=== PATIENT | male | born 1985 | race Caucasian/White ===

== ENCOUNTER 2019-10-27 20:12 | Emergency (ER) | payer BC, OTHER ==
[2019-10-27 20:38] VITALS: BP 127/87; PULSE 113; TEMP 99.6; BMI 25.0
--- NOTE | 2019-10-27 21:24 | PDOC ---
*Physical Exam - Vital Signs Last Vital Signs Temp Pulse Resp BP Pulse Ox 99.6 F 113 H 20 127/87 97 10/27/19 20:32 10/27/19 20:32 10/27/19 20:32 10/27/19 20:32 10/27/19 20:32 ED Treatment Course - LABORATORY CBC & Chemistry Diagram: 10/27/19 21:57 10/27/19 21:57 Medical Decision Making - Medical Decision Making 10/27/19 21:24 Patient seen by the advanced practice provider under my direct supervision. Ancillary testing reviewed as necessary. I agree with plan as outlined by the advanced practice provider. Discharge - Discharge Information Problems reviewed: Yes Clinical Impression/Diagnosis: Abnormal thyroid blood test, Headache - Follow up/Referral Referrals: Yakov Adorno MD [Primary Care Provider] - - Patient Discharge Instructions - Post Discharge Activity
[2019-10-27] MEDS ORDERED: ACETAMINOPHEN 1000 MG/100 ML VIAL (NON FORMULARY) IVPB ONE (21:43)
[2019-10-27] MEDS ORDERED: METOCLOPRAMIDE HCL INJECTION 10 MG/2 ML VIAL IVPUSH ONE (21:43)
[2019-10-27] MEDS ORDERED: SODIUM CHLORIDE 1,000 ML IV STA (21:43)
[2019-10-27] MEDS ORDERED: METOCLOPRAMIDE HCL INJECTION 10 MG/2 ML VIAL ONE (21:44)
--- NOTE | 2019-10-27 21:44 | PDOC ---
History of Present Illness - General Chief Complaint: Nausea Stated Complaint: HEADACHE Time Seen by Provider: 10/27/19 21:20 History Source: Patient Exam Limitations: No Limitations - History of Present Illness Initial Comments: 10/27/19 23:52 HISTORY OF PRESENT ILLNESS: 34-year-old male denies medical history presents emergency department for evaluation of chills, generalized weakness, headaches, increased thirst, dry mouth and insomnia. patient reports symptoms been present for approximately 1 month and started after he was having custody issues with his child's mother. Patient reports his insomnia is inability to stay asleep. Patient reports he falls asleep and is only asleep briefly before he wakes up. Has been taking Advil PM (half of a tablet) every night to help him with this headache and sleeping. He denies any abdominal pain, chest pain, shortness of breath, nausea, vomiting or dizziness. No recent travel or sick contacts. PAST MEDICAL HISTORY: Denies past medical history SURGICAL HISTORY: Denies ALLERGIES: No known drug allergies REVIEW OF SYSTEMS General/Constitutional: See HPI HEENT: Denies change in vision. Denies ear pain or discharge. Denies sore throat. Cardiovascular: Denies chest pain or shortness of breath. Respiratory: Denies cough, wheezing, or hemoptysis. Gastrointestinal: Denies nausea, vomiting, diarrhea or constipation. Denies rectal bleeding. Genitourinary: Denies dysuria, frequency, or change in urination. Musculoskeletal: Denies joint or muscle swelling or pain. Denies neck or back pain. Skin and breasts: Denies rash or easy bruising. Neurologic: See HPI Psychiatric: Denies depression or anxiety. Endocrine: See HPI Hematologic/Lymphatic: Denies anemia, easy bleeding, or history of blood clots. Allergic/Immunologic: Denies hives or skin allergy. Denies latex allergy. PHYSICAL EXAM General Appearance: Well-appearing, appropriately dressed. No apparent distress , no intoxication. HEENT: EOMI, PERRLA, normal ENT inspection, normal voice, TMs normal, pharynx normal. No conjunctival pallor. No photophobia, scleral icterus. Neck: Supple. Trachea midline. No tenderness, rigidity, carotid bruit, stridor , lymphadenopathy, or thyromegaly. Respiratory/Chest: Lungs CTAB. No shortness of breath, chest tenderness, respiratory distress, accessory muscle use. No crackles, rales, rhonchi, stridor , wheezing, dullness Cardiovascular: Tachycardic. S1, S2. No JVD, murmur, bradycardia Vascular Pulses: Dorsalis-Pedis (R): 2+, Dorsalis-Pedis (L): 2+ Gastrointestinal/Abdominal: Normal bowel sounds. Abdomen soft, non-distended. No tenderness or rebound tenderness. No organomegaly, pulsatile mass, guarding, hernia, hepatomegaly, splenomegaly. Lymphatic: No adenopathy, tenderness. Musculoskeletal/Extremities: Normal inspection. FROM of all extremities, normal capillary refill. Pelvis Stable. No CVA tenderness. No tenderness to extremities, pedal edema, swelling, erythema or deformity. Integumentary: Appropriate color, dry, warm. No cyanosis, erythema, jaundice or rash Neurologic: penciller II-XII intact. Fully oriented, alert. Appropriate mood/affect. Motor strength 5/5. No appreciable EOM palsy, facial droop or sensory deficit. Gait is steady. Able to perform rapid alternating movements without difficulty. Past History - Past Medical History Allergies/Adverse Reactions: Allergies Allergy/AdvReac Type Severity Reaction Status Date / Time amoxicillin [Amoxicillin] AdvReac Intermediate Difficulty Verified 10/27/19 23: 52 Breathing Home Medications: Ambulatory Orders NK [No Known Home Medication] 10/27/19 COPD: No - Psycho Social/Smoking Cessation Hx Smoking Status: Yes Smoking History: Never smoked Number of Cigarettes Smoked Daily: 1 Hx Alcohol Use: No Drug/Substance Use Hx: No *Physical Exam - Vital Signs Last Vital Signs Temp Pulse Resp BP Pulse Ox 99.6 F 113 H 20 127/87 97 10/27/19 20:32 10/27/19 20:32 10/27/19 20:32 10/27/19 20:32 10/27/19 20:32 ED Treatment Course - LABORATORY CBC & Chemistry Diagram: 10/27/19 21:57 10/27/19 21:57 - RADIOLOGY Radiology Studies Ordered: Category Date Time Status HEAD CT WITHOUT CONTRAST [CT] Stat CT Scan 10/27/19 21:43 Ordered Medical Decision Making - Medical Decision Making 10/27/19 23:57 A/P: 34-year-old male 1 month of chills, weakness, increased thirst, dry mouth, headaches and insomnia Physical exam is notable for tachycardia with heart rate of 113. Moist mucous membranes Neurologic exam is within normal limits Differential diagnosis includes but is not limited to- metabolic abnormality, hyperthyroidism, influenza, anxiety over life stressors, metastatic disease Labs including TSH EKG Noncontrast head CT Normal saline 1 L IV bolus Reglan 10 mg IV push Benadryl 12.5 mg IV push Tylenol 1 g IV Reassess 10/28/19 00:00 EKG as read by me: Sinus rhythm with rate of 94. Normal intervals present. Normal axis. No ischemic changes present. Labs notable for TSH 0.2. Free T3 and free T4 ordered Head CT is read by Dr. Zendejas: No acute intracranial pathology present. Nasal polyps noted. Patient reports he feels better after receiving migraine cocktail. Discharge home. I will defer initiation of hypothyroid treatment pending T3 and T4 studies. Follow-up call placed in the patient's chart for thyroid studies. Patient reports he does not have difficulty securing appointment with his primary doctor who can follow-up on his labs. I discussed the physical exam findings, ancillary test results and final diagnoses with the patient. I answered all of the patient's questions. The patient was satisfied with the care received and felt comfortable with the discharge plan and treatment plan. The patient will call their primary care physician within 24 hours to arrange follow-up and will return to the Emergency Department with any new, persistent or worsening symptoms. Discharge - Discharge Information Problems reviewed: Yes Clinical Impression/Diagnosis: Abnormal thyroid blood test Headache Qualifiers: Headache type: unspecified Headache chronicity pattern: episodic headache Intractability: not intractable Qualified Code(s): R51 - Headache Condition: Fair Disposition: HOME - Admission No - Follow up/Referral Referrals: Yakov Adorno MD [Primary Care Provider] - CallBack Reminder: Free T3, T4 - Patient Discharge Instructions Additional Instructions: Your thyroid-stimulating hormone level was 0.2. The other thyroid tests will take a couple of days to return a result. Someone from the emergency department will call you with the results when completed. It is very important that you follow-up with your primary doctor for continued evaluation of your thyroid. Keep well-hydrated. Return to the emergency department for any new or worsening symptoms. Thank you very much for choosing us to provide your emergent healthcare needs. - Post Discharge Activity
[2019-10-27] MEDS ORDERED: ACETAMINOPHEN INJECTION 100 ML IVPB ONE (21:45)
[2019-10-27 22:10] LABS: BASO % 0.3 % (0-2.0); EOS % 0.2 % (0-4.5); HEMATOCRIT 46.1 % (35.4-49); HEMOGLOBIN 15.7 GM/dL (11.7-16.9); LYMPH % 6.1 % (8-40); MCH 29.8 pg (25.7-33.7); MEAN CELL VOLUME 87.6 fl (80-96); MEAN PLT VOLUME 9.3 fl (7.5-11.1); MONO % 14.5 % (3.8-10.2); NEUT % 78.9 % (42.8-82.8); PLATELET COUNT 191 K/MM3 (134-434); RBC 5.26 M/mm3 (4.00-5.60); RDW 13.7 % (11.9-15.9); WHITE BLOOD COUNT 7.2 K/mm3 (4.0-10.0)
[2019-10-27 22:53] LABS: ALBUMIN 4.2 g/dl (3.4-5.0); BILIRUBIN,TOTAL 0.4 mg/dL (0.2-1); CALCIUM 8.6 mg/dL (8.5-10.1); CREATININE 1.4 mg/dL (0.55-1.3); POTASSIUM 4.2 mmol/L (3.5-5.1); TOT PROT 7.8 g/dl (6.4-8.2)
--- NOTE | 2019-10-28 11:34 | EKG ---
Test Reason : Blood Pressure : / mmHG Vent. Rate : 094 BPM Atrial Rate : 094 BPM P-R Int : 144 ms QRS Dur : 082 ms QT Int : 332 ms P-R-T Axes : 051 022 032 degrees QTc Int : 415 ms NORMAL SINUS RHYTHM NORMAL ECG WHEN COMPARED WITH ECG OF 26-SEP-2009 23:55, VENT. RATE HAS INCREASED BY 31 BPM Confirmed by TAB MARX MD ([id number]) on 10/28/2019 11:34:19 AM Referred By: Confirmed By:TAB MARX MD
== END 2019-10-28 00:19 | disposition home or self-care (01) ==
LOC: JER 20:12 → JERFT 20:12 → JER 10-28 00:19
PROC: 3E033NZ Introduction of Analgesics, Hypnotics, Sedatives into Peripheral Vein, Percutaneous Approach (ICD-10-PCS; principal; 2019-10-27)
PROC: 3E033GC Introduction of Other Therapeutic Substance into Peripheral Vein, Percutaneous Approach (ICD-10-PCS; 2019-10-27)
DX: R79.9 Abnormal finding of blood chemistry, unspecified (principal); Z88.8 Allergy status to other drugs, medicaments and biological substances; Z72.0 Tobacco use
CPT/HCPCS: 36415; 70450-TC; 80053; 84439; 84443; 84481; 85025; 87804; 93005; 93010; 99283-25; J0131; J7030